=== PATIENT | male | born 1980 | race Hispanic/Latino ===

== ENCOUNTER 2017-06-21 17:32 | Emergency (ER) | payer SELFPAY ==
[~2017-06-21] VITALS: Ht 175.3 cm; Wt 105.0 kg
[~2017-06-21 17:32] MED LIST: BACTRIM DS1 TAB PO; DAYQUIL OR; LORTAB 5 OR; LORTAB 5-325 MG1 TAB PO; MOTRIN800 MG PO; NO HOME MEDS
[2017-06-21] MEDS ORDERED: ULTRAM50 M1 PO (18:56)
[2017-06-21 19:19] VITALS: BP 123/80
== END 2017-06-21 19:19 | disposition home or self-care (01) | DRG 563 ==
LOC: ED 17:32
DX: S93.401A Sprain of unspecified ligament of right ankle, initial encounter (principal); X50.0XXA Overexertion from strenuous movement or load, initial encounter; Y93.67 Activity, basketball; Y92.009 Unspecified place in unspecified non-institutional (private) residence as the place of occurrence of the external cause

== ENCOUNTER 2019-01-02 17:45 | Emergency (ER) | payer SELFPAY ==
[~2019-01-02] VITALS: Ht 175.3 cm; Wt 90.0 kg
[~2019-01-02 17:45] MED LIST changes: +ULTRAM50 M1 PO
[2019-01-02 19:10] VITALS: BP 134/78
== END 2019-01-02 19:10 | disposition home or self-care (01) | DRG 605 ==
LOC: ED 17:45
PROC: 0HQGXZZ Repair Left Hand Skin, External Approach (ICD-10-PCS; principal; 2019-01-02)
DX: S61.211A Laceration without foreign body of left index finger without damage to nail, initial encounter (principal); W26.8XXA Contact with other sharp object(s), not elsewhere classified, initial encounter; Y93.89 Activity, other specified; Y92.009 Unspecified place in unspecified non-institutional (private) residence as the place of occurrence of the external cause

== ENCOUNTER 2019-01-12 19:38 | Emergency (ER) | payer SELFPAY ==
[~2019-01-12] VITALS: Ht 175.3 cm; Wt 100.0 kg
[2019-01-12 20:25] VITALS: BP 114/74
== END 2019-01-12 20:25 | disposition home or self-care (01) | DRG 950 ==
LOC: ED 19:38
DX: S61.201D Unspecified open wound of left index finger without damage to nail, subsequent encounter (principal); X58.XXXD Exposure to other specified factors, subsequent encounter

== ENCOUNTER 2019-09-29 17:48 | Emergency (ER) | payer SELFPAY ==
[~2019-09-29] VITALS: Ht 175.3 cm; Wt 106.0 kg
[2019-09-29 19:11] VITALS: BP 140/77
[2019-09-29] MEDS ORDERED: IBUPROFEN600 MG PO (20:02)
[2019-09-29] MEDS ORDERED: CYCLOGYL 1% OS (20:02)
== END 2019-09-29 20:23 | disposition home or self-care (01) | DRG 125 ==
LOC: ED 17:48
DX: H53.141 Visual discomfort, right eye (principal)

== ENCOUNTER 2020-07-28 23:09 | Emergency (ER) | payer OTHER ==
[~2020-07-28] VITALS: Ht 175.3 cm; Wt 104.5 kg
[~2020-07-28 23:09] MED LIST changes: +CYCLOGYL 1% OS; +IBUPROFEN600 MG PO
[2020-07-28 23:47] LABS: HEMATOCRIT 41.9 % (39.0-50.0); IMMATURE GRANULOCYTES 0.3 % (0.0-5.0); MEAN CORPUSCULAR HGB 30.2 pG CALC (26.0-32.0); MEAN CORPUSCULAR HGB CONC 32.2 g/dL CAL (32.0-36.0); NEUT# 4.25 thou/uL (1.82-7.42); RED BLOOD COUNT 4.47 mill/uL (4.70-6.10); RED CELL DISTRI WIDTH 11.9 % (11.5-15.5)
[2020-07-28 23:48] LABS: HEMOGLOBIN 13.5 g/dl (14.0-18.0); MEAN CELL VOLUME 93.7 fL CALC (80.0-100.0)
[2020-07-29 00:10] LABS: ALBUMIN 4.5 g/dL (3.2-5.0); ALKALINE PHOSPHATASE 79 u/l (38-126); ANION GAP 12 (6-22 (CALC)); BUN 16 mg/dL (9-20); BUN/CREATININE RATIO 18 (12-20 (CALC)); CARBON DIOXIDE 27 mmol/l (22-30); CHLORIDE 103 mmol/l (95-108); CREATININE 0.9 mg/dL (0.7-1.3); GFR > 60 ML/MIN (>=60 (CALC)); GFR FOR AFR.AMER. > 60 ML/MIN (>=60 (CALC)); POTASSIUM 3.9 mmol/l (3.5-5.1); SGOT/AST 29 u/l (17-59); SODIUM 138 mmol/l (137-146); TOTAL PROTEIN 6.9 g/dL (6.3-8.2)
[2020-07-29 00:13] LABS: BILIRUBIN, TOTAL 0.4 mg/dL (0.0-1.4)
[2020-07-29 00:42] LABS: MYOGLOBIN 40 ng/mL (0 - 121)
[2020-07-29] MEDS ORDERED: VENTOLIN HFA IN (01:42)
[2020-07-29] MEDS ORDERED: PREDNISONE50 MG PO (01:42)
[2020-07-29 01:50] VITALS: BP 120/69
== END 2020-07-29 01:50 | disposition home or self-care (01) | DRG 178 ==
LOC: ED 23:09
PROVIDERS: Family Medicine
DX: U07.1 COVID-19 (principal); J45.901 Unspecified asthma with (acute) exacerbation; F17.210 Nicotine dependence, cigarettes, uncomplicated

== ENCOUNTER 2020-12-22 15:29 | Emergency (ER) | payer OTHER ==
[~2020-12-22] VITALS: Ht 175.3 cm; Wt 100.0 kg
[~2020-12-22 15:29] MED LIST changes: +PREDNISONE50 MG PO; +VENTOLIN HFA IN
[2020-12-22 15:59] LABS: HEMATOCRIT 44.5 % (39.0-50.0); IMMATURE GRANULOCYTES 0.2 % (0.0-5.0); MEAN CELL VOLUME 91.6 fL CALC (80.0-100.0); MEAN CORPUSCULAR HGB 30.9 pG CALC (26.0-32.0); MEAN CORPUSCULAR HGB CONC 33.7 g/dL CAL (32.0-36.0); NEUT# 7.15 thou/uL (1.82-7.42); RED BLOOD COUNT 4.86 mill/uL (4.70-6.10); RED CELL DISTRI WIDTH 11.7 % (11.5-15.5)
[2020-12-22 16:18] LABS: ANION GAP 11 (6-22 (CALC)); BUN 13 mg/dL (9-20); BUN/CREATININE RATIO 17 (12-20 (CALC)); CARBON DIOXIDE 30 mmol/l (22-30); CHLORIDE 101 mmol/l (95-108); CREATININE 0.8 mg/dL (0.7-1.3); GFR > 60 ML/MIN (>=60 (CALC)); GFR FOR AFR.AMER. > 60 ML/MIN (>=60 (CALC)); SODIUM 138 mmol/l (137-146)
[2020-12-22] MEDS ORDERED: PROAIR HFA108 MCG/AC PO (18:18)
[2020-12-22 18:57] VITALS: BP 128/80
== END 2020-12-22 18:59 | disposition home or self-care (01) | DRG 204 ==
LOC: ED 15:29
PROVIDERS: Family Medicine
DX: R06.02 Shortness of breath (principal); J45.901 Unspecified asthma with (acute) exacerbation; F17.200 Nicotine dependence, unspecified, uncomplicated; Z20.828 Contact with and (suspected) exposure to other viral communicable diseases

== ENCOUNTER 2022-05-12 18:54 | Emergency (ER) | payer OTHER ==
[~2022-05-12] VITALS: Ht 175.3 cm; Wt 116.0 kg
[~2022-05-12 18:54] MED LIST changes: +PROAIR HFA108 MCG/AC PO
[2022-05-12 19:12] VITALS: BP 152/101
[2022-05-12 19:31] VITALS: BP 133/96
[2022-05-12 20:00] VITALS: BP 144/95
[2022-05-12 20:30] VITALS: BP 149/100
[2022-05-12] MEDS ORDERED: VOLTAREN75 MG PO (20:48)
[2022-05-12 21:00] VITALS: BP 120/80; BP 146/96
[2022-05-12] MEDS ORDERED: TRAMADOL HCL50 MG PO (21:18)
== END 2022-05-12 21:32 | disposition home or self-care (01) | DRG 563 ==
LOC: ED 18:54
DX: S83.92XA Sprain of unspecified site of left knee, initial encounter (principal); J45.909 Unspecified asthma, uncomplicated; W01.0XXA Fall on same level from slipping, tripping and stumbling without subsequent striking against object, initial encounter

== ENCOUNTER 2022-09-12 16:57 | Emergency (ER) | payer OTHER ==
[~2022-09-12] VITALS: Ht 170.2 cm; Wt 111.0 kg
[~2022-09-12 16:57] MED LIST changes: +TRAMADOL HCL50 MG PO; +VOLTAREN75 MG PO
[2022-09-12 17:06] VITALS: BP 141/92
[2022-09-12 17:31] VITALS: BP 126/71
[2022-09-12 17:51] LABS: HEMATOCRIT 40.7 % (39.0-50.0); HEMOGLOBIN 14.2 g/dl (14.0-18.0); IMMATURE GRANULOCYTES 0.2 % (0.0-5.0); MEAN CELL VOLUME 91.7 fL CALC (80.0-100.0); MEAN CORPUSCULAR HGB CONC 34.9 g/dL CAL (32.0-36.0); NEUT# 5.44 thou/uL (1.82-7.42); RED BLOOD COUNT 4.44 mill/uL (4.70-6.10); RED CELL DISTRI WIDTH 11.7 % (11.5-15.5)
[2022-09-12 17:56] LABS: ALBUMIN 4.6 g/dL (3.2-5.0); ALKALINE PHOSPHATASE 70 u/l (38-126); ANION GAP 13 (6-22 (CALC)); BILIRUBIN, TOTAL 0.4 mg/dL (0.0-1.4); BUN 7 mg/dL (9-20); BUN/CREATININE RATIO 10 (12-20 (CALC)); CARBON DIOXIDE 26 mmol/l (22-30); CHLORIDE 105 mmol/l (95-108); CREATININE 0.8 mg/dL (0.7-1.3); GFR FOR AFR.AMER. > 60 ML/MIN (>=60 (CALC)); GFR OTHER RACES > 60 ML/MIN (>=60 (CALC)); POTASSIUM 3.4 mmol/l (3.5-5.1); SODIUM 140 mmol/l (137-146); TOTAL PROTEIN 7.4 g/dL (6.3-8.2)
[2022-09-12 17:57] LABS: SGOT/AST 57 u/l (17-59)
[2022-09-12 18:31] VITALS: BP 134/84
[2022-09-12 19:01] VITALS: BP 141/79
[2022-09-12] MEDS ORDERED: ULTRAM50 M1 PO (19:25)
[2022-09-12 19:31] VITALS: BP 117/68
[2022-09-12 19:54] VITALS: BP 141/82
[2022-09-12 20:16] LABS: URINE BILIRUBIN - DIPSTICK NEGATIVE (NEGATIVE); URINE BLOOD DIPSTICK TRACE-INTACT (NEGATIVE); URINE COLOR YELLOW; URINE GLUCOSE - DIPSTICK NEGATIVE (NEGATIVE); URINE KETONE NEGATIVE (NEGATIVE); URINE LEUK ESTERASE NEGATIVE (NEGATIVE); URINE PH 6.5 (4.5-8.0); URINE PROTEIN - DIPSTICK NEGATIVE (NEG-TRACE)
[2022-09-12 20:35] LABS: URINE NITRITE - DIPSTICK NEGATIVE (Negative)
== END 2022-09-12 20:05 | disposition home or self-care (01) | DRG 552 ==
LOC: ED 16:57
PROVIDERS: Family Medicine
DX: M54.2 Cervicalgia (principal); R07.9 Chest pain, unspecified; M79.662 Pain in left lower leg; M79.661 Pain in right lower leg; V49.88XA Car occupant (driver) (passenger) injured in other specified transport accidents, initial encounter
CPT/HCPCS: Q9967

== ENCOUNTER 2025-01-31 22:55 | Emergency (ER) | payer OTHER ==
[~2025-01-31] VITALS: Ht 170.2 cm; Wt 117.9 kg
[2025-01-31] MEDS ORDERED: KETOROLAC TROMETHAMINE 30 MG/ML SDV IV ONE (23:20)
[2025-01-31 23:40] LABS: BASO% 0.1 % (0-3); EOS% 3.1 % (0-8); HEMATOCRIT 43.2 % (39.0-50.0); HEMOGLOBIN 15.2 g/dl (14.0-18.0); IMMATURE GRANULOCYTES 0.1 % (0.0-5.0); LYMPH% 34.2 % (15-41); MEAN CELL VOLUME 89.6 fL CALC (80.0-100.0); MEAN CORPUSCULAR HGB 31.5 pG CALC (26.0-32.0); MEAN CORPUSCULAR HGB CONC 35.2 g/dL CAL (32.0-36.0); MONO% 7.7 % (2-13); NEUT# 4.75 thou/uL (1.82-7.42); NEUT% 54.8 % (42-76); RED BLOOD COUNT 4.82 mill/uL (4.70-6.10); RED CELL DISTRI WIDTH 11.5 % (11.5-15.5)
[2025-02-01 00:02] LABS: ALBUMIN 4.8 g/dL (3.2-5.0); BILIRUBIN, TOTAL 0.6 mg/dL (0.2-1.3); CREATININE 0.9 mg/dL (0.7-1.3); POTASSIUM 3.6 mmol/l (3.5-5.1); TOTAL PROTEIN 7.5 g/dL (6.3-8.2)
[2025-02-01] MEDS ORDERED: ONDANSETRON HCl 4 MG/2 ML SDV IV ONE (02:05)
[2025-02-01] MEDS ORDERED: MORPHINE SULFATE 4 MG/ML VIAL IV ONE (02:05)
[2025-02-01] MEDS ORDERED: oxyCODONE 10MG/APAP 325 MG 1 COMBO TAB PO ONE (02:15)
[2025-02-01 02:43] VITALS: BP 136/89
== END 2025-02-01 02:43 | disposition home or self-care (01) | DRG 392 ==
LOC: ED 22:55
PROVIDERS: Family Medicine
DX: R10.32 Left lower quadrant pain (principal); F17.200 Nicotine dependence, unspecified, uncomplicated; V49.40XA Driver injured in collision with unspecified motor vehicles in traffic accident, initial encounter; Y99.0 Civilian activity done for income or pay
CPT/HCPCS: J1100; Q9967